=== PATIENT | male | born 1945 | race Caucasian/White ===

== ENCOUNTER 2016-09-08 07:50 | Inpatient (IN) | payer MEDICARE, OTHER ==
[2016-09-08] MEDS ORDERED: SODIUM CHLORIDE 0.9% 500 ML IV STA ×2 (08:02→08:21)
[2016-09-08] MEDS ORDERED: ENALAPRILAT 1.25 MG/ML 1 ML VIAL IVP STA (08:02)
[2016-09-08] MEDS ORDERED: SODIUM CHLORIDE 0.9% 1,000 ML IV STA (08:02)
--- NOTE | 2016-09-08 08:06 | ED ---
Altered Mental Status HPI - General Stated Complaint: HEADACHE, DISORIENTED HX OF STROKE Time Seen by Provider: 09/08/16 07:53 Source: patient, family, RN notes reviewed, old records reviewed - History of Present Illness Initial Comments: This is a 70-year-old male with a history of hypertension CVA type 2 diabetes who apparently has had a headache for the past 3 days he states he fell backwards 3 days ago but in a chair and did not strike his head. He is on Plavix and aspirin. He was brought in today because of confusion it was no this morning he did not answer questions appropriately when asked the name of his daughter was the name of his he stated his daughter was not . Additionally 1 putting a particle clothing on he did this inappropriately tripped over his head on correctly. No focal weaknesses noted no fevers chills nausea vomiting sweats he was recently taken off of his lisinopril but he did take a dose yesterday. Upon arrival to the emergency department he was noted be hypertensive. He does state that headache is sharp 8/10 in severity. No associated blurry vision or nausea. With respect to the lisinopril apparently was August 11 he was told to quit taking it but then was to be started on it again. The patient apparently has some difficulty with reading instructions to something last night around 7:30 this seems to be when the symptoms began. MD Complaint: altered mental status, confusion, other - Related Data Home Medications Medication Instructions Recorded Confirmed Latanoprost Ophth [Xalatan 0.005%] 1 drops RIGHT EYE HS 02/22/15 02/22/15 Multivit-Min/FA/Lycopene/Lut 1 tab PO DAILY 02/22/15 02/22/15 [Centrum Silver Tablet] glipiZIDE [Glucotrol] 10 mg PO AC-BID 02/22/15 02/28/15 Previous Rx's Medication Instructions Recorded Aspirin EC [Ecotrin Low Dose] 162 mg PO DAILY #30 tablet. 03/04/15 Clopidogrel Bisulfate [Plavix] 75 mg PO DAILY #30 03/04/15 Furosemide [Lasix] 40 mg PO DAILY #10 tab 03/04/15 HYDROcodone/APAP 5-325MG [Leroy 1 each PO Q4HR PRN #30 tab 03/04/15 5-325] Lisinopril-Hctz 20-25 mg 1 each PO DAILY #30 tab 03/04/15 [Zestoretic 20-25] Metoprolol Tartrate [Lopressor] 50 mg PO BID #30 tab 03/04/15 Potassium Chloride ER [K-Dur 20] 20 meq PO DAILY #10 tab.er.prt 03/04/15 Simvastatin [Zocor] 40 mg PO HS #30 tab 03/04/15 metFORMIN HCL [Glucophage] 1,000 mg PO AC-BID #30 tab 03/04/15 Allergies Allergy/AdvReac Type Severity Reaction Status Date / Time No Known Allergies Allergy Verified 09/08/16 08:05 Review of Systems ROS Statement: Those systems with pertinent positive or pertinent negative responses have been documented in the HPI. ROS Other: All systems not noted in ROS Statement are negative. Past Medical History Past Medical History: Coronary Artery Disease (CAD), CVA/TIA (Or between 10-15 years ago. Following the first, the patient had some left-sided weakness patient left lower extremity and subsequently he regained consciousness. Second left him with some speech deficits and a third course some generalized weakness.), Diabetes Mellitus, Hyperlipidemia, Hypertension Additional Past Medical History / Comment(s): neuropathy type 2 diabetes History of Any Multi-Drug Resistant Organisms: None Reported Past Surgical History: No Surgical Hx Reported Additional Past Anesthesia/Blood Transfusion Reaction / Comment(s): unknown Past Psychological History: No Psychological Hx Reported Smoking Status: Former smoker Past Alcohol Use History: Occasional Past Drug Use History: None Reported - Past Family History Father Additional Family Medical History / Comment(s): hip replacement Mother Family Medical History: CVA/TIA Brother(s) Family Medical History: Diabetes Mellitus General Exam - General Exam Comments Initial Comments: This is a well-developed well-nourished awake alert male he is alert to day and time and year General appearance: alert, in no apparent distress Head exam: Present: atraumatic, normocephalic, normal inspection Eye exam: Present: normal appearance, PERRL, EOMI. Absent: scleral icterus, conjunctival injection, periorbital swelling ENT exam: Present: mucous membranes dry Neck exam: Present: normal inspection. Absent: tenderness, meningismus, lymphadenopathy Respiratory exam: Present: normal lung sounds bilaterally. Absent: respiratory distress, wheezes, rales, rhonchi, stridor Cardiovascular Exam: Present: regular rate, normal rhythm, normal heart sounds. Absent: systolic murmur, diastolic murmur, rubs, gallop, clicks GI/Abdominal exam: Present: soft, normal bowel sounds. Absent: distended, tenderness, guarding, rebound, rigid Extremities exam: Present: normal inspection, normal capillary refill. Absent: full ROM, tenderness, pedal edema, joint swelling, calf tenderness Back exam: Present: normal inspection Neurological exam: Present: alert, oriented X3, CN II-XII intact, motor sensory deficit, other (Patient does demonstrate inability to do [id number] movements and does have sensory deficit please refer to the NIH stroke scale) Psychiatric exam: Present: normal affect, normal mood Skin exam: Present: warm, dry, intact, normal color. Absent: rash Course Vital Signs 09/08/16 09/08/16 09/08/16 08:00 08:15 09:04 Temperature 96.8 F L 97.6 F Pulse Rate 109 H 112 H 107 H Respiratory 18 18 17 Rate Blood Pressure 238/110 205/111 175/100 O2 Sat by Pulse 93 L 95 97 Oximetry 09/08/16 09/08/16 09:33 09:40 Temperature 97.7 F Pulse Rate 97 103 H Respiratory 101 H 16 Rate Blood Pressure 169/88 169/88 O2 Sat by Pulse 97 98 Oximetry - Reevaluation(s) Reevaluation #1: 09/08/16 09:51 Reevaluation the patient is return from CAT scan revealed no major changes. Reevaluation #2: 09/08/16 09:52 Reevaluation the NIH scale reveals the patient has only minimal improvement from a 6 to a 5 Reevaluation #3: 09/08/16 09:53 The patient blood pressure is improved Medical Decision Making - Medical Decision Making I did a long discussion with the patient family regarding findings. Patient does demonstrate some neurological symptoms. It appears that the onset was more than 12 hours prior to arrival. Patient will be admitted for neurological evaluation. I did discuss the case with the hospitalist. - Lab Data Result diagrams: 09/08/16 03:01 09/08/16 03:01 Lab Results 09/08/16 09/08/16 09/08/16 Range/Units 03:01 03:01 08:06 WBC 9.6 (3.8-10.6) k/uL RBC 5.02 (4.30-5.90) m/uL Hgb 14.9 (13.0-17.5) gm/dL Hct 42.4 (39.0-53.0) % MCV 84.5 (80.0-100.0) fL MCH 29.7 (25.0-35.0) pg MCHC 35.2 (31.0-37.0) g/dL RDW 14.0 (11.5-15.5) % Plt Count 260 (150-450) k/uL Neutrophils % 84 % Lymphocytes % 10 % Monocytes % 4 % Eosinophils % 0 % Basophils % 1 % Neutrophils # 8.1 H (1.3-7.7) k/uL Lymphocytes # 1.0 (1.0-4.8) k/uL Monocytes # 0.4 (0-1.0) k/uL Eosinophils # 0.0 (0-0.7) k/uL Basophils # 0.1 (0-0.2) k/uL Sodium 140 (137-145) mmol/L Potassium 4.1 (3.5-5.1) mmol/L Chloride 100 (98-107) mmol/L Carbon Dioxide 24 (22-30) mmol/L Anion Gap 16 mmol/L BUN 19 (9-20) mg/dL Creatinine 1.14 (0.66-1.25) mg/dL Est GFR (MDRD) Af Amer >60 (>60 ml/min/1.73 sqM) Est GFR (MDRD) Non-Af >60 (>60 ml/min/1.73 sqM) Glucose 295 H (74-99) mg/dL POC Glucose (mg/dL) 311 H (75-99) mg/dL POC Glu Manager Completions ID Babita Montes Calcium 9.4 (8.4-10.2) mg/dL Magnesium 1.7 (1.6-2.3) mg/dL Total Bilirubin 0.9 (0.2-1.3) mg/dL AST 33 (17-59) U/L ALT 50 (21-72) U/L Alkaline Phosphatase 74 (38-126) U/L Total Creatine Kinase (55-170) U/L CK-MB (CK-2) (0.0-2.4) ng/mL CK-MB (CK-2) Rel Index Total Protein 7.4 (6.3-8.2) g/dL Albumin 4.6 (3.5-5.0) g/dL 09/08/16 Range/Units 08:15 WBC (3.8-10.6) k/uL RBC (4.30-5.90) m/uL Hgb (13.0-17.5) gm/dL Hct (39.0-53.0) % MCV (80.0-100.0) fL MCH (25.0-35.0) pg MCHC (31.0-37.0) g/dL RDW (11.5-15.5) % Plt Count (150-450) k/uL Neutrophils % % Lymphocytes % % Monocytes % % Eosinophils % % Basophils % % Neutrophils # (1.3-7.7) k/uL Lymphocytes # (1.0-4.8) k/uL Monocytes # (0-1.0) k/uL Eosinophils # (0-0.7) k/uL Basophils # (0-0.2) k/uL Sodium (137-145) mmol/L Potassium (3.5-5.1) mmol/L Chloride (98-107) mmol/L Carbon Dioxide (22-30) mmol/L Anion Gap mmol/L BUN (9-20) mg/dL Creatinine (0.66-1.25) mg/dL Est GFR (MDRD) Af Amer (>60 ml/min/1.73 sqM) Est GFR (MDRD) Non-Af (>60 ml/min/1.73 sqM) Glucose (74-99) mg/dL POC Glucose (mg/dL) (75-99) mg/dL POC Glu Manager Completions ID Calcium (8.4-10.2) mg/dL Magnesium (1.6-2.3) mg/dL Total Bilirubin (0.2-1.3) mg/dL AST (17-59) U/L ALT (21-72) U/L Alkaline Phosphatase (38-126) U/L Total Creatine Kinase 73 (55-170) U/L CK-MB (CK-2) 1.3 (0.0-2.4) ng/mL CK-MB (CK-2) Rel Index 1.8 Total Protein (6.3-8.2) g/dL Albumin (3.5-5.0) g/dL - EKG Data -: EKG Interpreted by Me EKG shows normal: sinus rhythm (Sinus tachycardia rate of 112 RI interval 154 QRS duration 80 QT/QTC of 346/[address]-T wave changes.) - Radiology Data Radiology results: report reviewed (I did review the imaging and reports. No acute findings are seen.), image reviewed Critical Care Time Critical Care Time: Yes Critical Care Time: 39 minutes which includes initial presentation with history physical lab and x- ray and CAT scan orders as well as evaluation of the same. Reevaluation patient several occasions. Discussion with family members. Discussion with the admitting physician review of old charting and documentation of the same. Disposition Clinical Impression: CVA (cerebral vascular accident), Hypertensive emergency, Hyperglycemia, Dehydration Disposition: ADMITTED IP TO THIS [facility] Condition: Stable Referrals: Alfred Sullivan MD [Primary Care Provider] - 1-2 days
[2016-09-08 08:17] LABS: Glucose,Whole Blood 311 mg/dL (75-99)
[2016-09-08 08:35] LABS: Basophils # (A) 0.1 k/uL (0-0.2); Basophils % (A) 1 %; CHCM 35.7; Eosinophils % (A) 0 %; HCT 42.4 % (39.0-53.0); HDW 3.21; HGB 14.9 gm/dL (13.0-17.5); Luc % (Auto) 1; Lymphocytes % (A) 10 %; MCH 29.7 pg (25.0-35.0); MCHC 35.2 g/dL (31.0-37.0); MCV 84.5 fL (80.0-100.0); Mean Platelet Volume 7.3; Monocytes # (A) 0.4 k/uL (0-1.0); Monocytes % (A) 4 %; Neutrophils # (A) 8.1 k/uL (1.3-7.7); Neutrophils % (A) 84 %; RBC 5.02 m/uL (4.30-5.90); WBC 9.6 k/uL (3.8-10.6); WBC (Perox) 10.36
[2016-09-08 08:40] LABS: ALT 50 U/L (21-72); AST 33 U/L (17-59); Alkaline Phosphatase 74 U/L (38-126); Anion Gap 16 mmol/L; Blood Urea Nitrogen 19 mg/dL (9-20); Calcium 9.4 mg/dL (8.4-10.2); Carbon Dioxide 24 mmol/L (22-30); Chloride 100 mmol/L (98-107); Glucose 295 mg/dL (74-99); Magnesium 1.7 mg/dL (1.6-2.3); Non-African American GFR(MDRD) >60 (>60 ml/min/1.73 sqM); Potassium 4.1 mmol/L (3.5-5.1); Sodium 140 mmol/L (137-145); Total Bilirubin 0.9 mg/dL (0.2-1.3); Total Protein 7.4 g/dL (6.3-8.2)
[2016-09-08 08:57] LABS: Creatine Kinase MB 1.3 ng/mL (0.0-2.4)
--- NOTE | 2016-09-08 09:00 | CT ---
EXAMINATION TYPE: CT brain wo con DATE OF EXAM: 09/08/2016 8:48 AM COMPARISON: CT brain January 05, 2012. HISTORY: Headache, dizziness. Disorientated, history of stroke CT DLP: 1029.90 mGycm. Automated Exposure Control for Dose Reduction was Utilized. TECHNIQUE: CT scan of the head is performed without contrast. COMPARISON: None. FINDINGS: There is no acute intracranial hemorrhage or midline shift identified. There is diffuse v entricular and sulcal prominence consistent with diffuse age-related cerebral atrophy. There is low- attenuation in the periventricular white matter consistent with chronic small vessel ischemic change. There is redemonstration of old infarct right parietal occipital level near image 23 posterior wate rshed. There is additional old infarct right frontal lobe anterior watershed near image 25 which is n oted new from 2012 study. Old lacunar infarct right medial basal ganglia on axial image 22 is redemon strated. Vascular calcification of distal internal carotid arteries bilaterally is redemonstrated. Th e globes are intact and the visualized sinuses are clear. IMPRESSION: No acute intracranial hemorrhage or midline shift. There is mild to moderate diffuse ag e-related cerebral atrophy and chronic small vessel ischemic change redemonstrated, several old right -sided infarcts are also noted.
--- NOTE | 2016-09-08 09:05 | XR ---
EXAMINATION TYPE: XR chest 2V DATE OF EXAM: 09/08/2016 9:00 AM COMPARISON: NONE HISTORY: Headache and confusion FINDINGS: The lungs are clear and there is no pneumothorax, pleural effusion, or focal pneumonia. Postsurgica l changes noted. Atherosclerotic change of the aorta. Arthropathy of the shoulders. IMPRESSION: 1. No acute process.
[2016-09-08] MEDS: SODIUM CHLORIDE 0.9% 1,000 ML IV SCH ×2 (10:13→21:28)
[2016-09-08 10:55] LABS: Hemoglobin A1C 6.3 % (4.2-6.1)
[2016-09-08 11:51] LABS: Glucose,Whole Blood 218 mg/dL (75-99)
[2016-09-08] MEDS ORDERED: HYDROcodone/APAP 5-325MG 1 EACH TAB PO PRN (11:54)
--- NOTE | 2016-09-08 11:55 | US ---
EXAMINATION TYPE: US carotid duplex BILAT DATE OF EXAM: 09/08/2016 11:19 AM COMPARISON: NONE CLINICAL HISTORY: US. Headaches, disoriented EXAM MEASUREMENTS: RIGHT: Peak Systolic Velocity (PSV) cm/sec ----- Right CCA: 48.5 ----- Right ICA: 145.1 ----- Right ECA: 172.7 ICA/CCA ratio: 3.0 RIGHT: End Diastole cm/sec ----- Right CCA: 9.3 ----- Right ICA: 26.8 ----- Right ECA: 13.0 LEFT: Peak Systolic Velocity (PSV) cm/sec ----- Left CCA: 57.3 ----- Left ICA: 114.1 ----- Left ECA: 207.0 ICA/CCA ratio: 2.0 LEFT: End Diastole cm/sec ----- Left CCA: 8.4 ----- Left ICA: 18.8 ----- Left ECA: 15.4 VERTEBRALS (direction of flow): Right Vertebral: Antegrade Left Vertebral: Antegrade IMPRESSION: 1. Moderate plaque noted bilateral bifurcations. There is approximately 50-69% stenosis involving the proximal ICA bilaterally. Criteria for Assigning % of Stenosis / Diameter reduction (Estimation based on the indirect measurements of the internal carotid artery velocities (ICA PSV). 1. Normal (no stenosis)=ICA PSV < 125 cm/s: ratio < 2.0: ICA EDV<40 cm/s. 2. Less than 50% stenosis=ICA PSV < 125 cm/s: ratio < 2.0: ICA EDV<40 cm/s. 3. 50 to 69% stenosis=ICA PSV of 125 to 230 cm/s: ration 2.0 ? 4.0: ICA EDV 40-100 cm/s. 4. Greater than 70% stenosis to near occlusion= ICA PSV > 230 cm/s: ratio > 4.0: ICA EDV > 100 cm/s. 5. Near occlusion= ICA PSV velocities may be low or undetectable: variable ratio and ICA EDV. 6. Total occlusion=unable to detect flow.
[2016-09-08] MEDS ORDERED: Magnesium Replacement Protocol 1 EACH MISC MISCELLANE PRN (12:06)
[2016-09-08] MEDS: INSULIN LISPRO (humaLOG) 300 UNIT/3 ML VIAL SQ SCH ×3 (12:47→21:30)
[2016-09-08] MEDS: ASPIRIN 81 MG CHEW PO SCH ×2 (12:48→17:30)
[2016-09-08] MEDS: METOPROLOL TARTRATE 50 MG TAB PO SCH ×2 (12:48→17:30)
[2016-09-08] MEDS: VIT A,C & E-LUTEIN-MINERALS 1 EACH TAB PO SCH (12:48)
[2016-09-08] MEDS: CLOPIDOGREL 75 MG TAB PO SCH (12:48)
[2016-09-08] MEDS: MAGNESIUM SULFATE-D5W PMX 1 GM in DEXTROSE/WATER 1 100ML.BAG IVPB SCH ×2 (12:53→14:13)
[2016-09-08 17:07] LABS: Glucose,Whole Blood 119 mg/dL (75-99)
[2016-09-08] MEDS: BUTA/APAP/CAF/COD 50-325-40-30 CAP PO PRN ×2 (17:29→21:29)
--- NOTE | 2016-09-08 17:47 | HP ---
DATE OF ADMISSION: Patient is a 70-year-old gentleman with a history of cerebrovascular accident in the past. Patient is on both aspirin and Plavix and came in with the complaints of episode of confusion. Not really a syncopal episode as documented in the ER physician's dictation. Patient is aware of the surroundings. When further questioned, patient is not really sure whether he is actually confused or not. His main complaint being a headache, which was 10/10 and now 5/10 and patient has cervical degenerative disc disease. He points his pain to cervical area, neck area and the posterior scalp area probably due to cervical degenerative disk disease and cervical cephalgia for which I started him on Fioricet. Patient was admitted for further evaluation for possibility of TIA, although my suspicion is low for that. Patient's CT of the head did not show any acute abnormality and carotid Doppler did not show significant occlusion, but there is significant atherosclerotic plaques on bilateral carotids. There is some diffuse age-related atrophy and several old infarcts that were seen on the CT of the head. Although patient is already on dual antiplatelet therapy. Patient recently had a CABG. Patient denied any fever or chills. Patient denied weakness, tingling, numbness anywhere. Patient's headache is 5/10 at this point of time. Patient had troubles with reading yesterday, but the history is not very clear, although his symptomatology is not consistent with infarction in any particular location of the brain. When patient came patient's blood pressure was very high. Patient was given a small dose enalapril after which his blood pressure has come now. Patient did not take any of his medications today. I do not believe patient actually has hypertensive emergency. I do not believe his confusion is related to high blood pressure. Instead I believe his elevated blood pressures is a false reading, which was taken immediately after coming to the ER, which is a physiologic elevation and patient's blood pressure immediately came down to 140s and I am actually even holding his hydrochlorothiazide and lisinopril for today to check out his blood pressure as it appears like it has been low at home but patient is mildly tachycardic. He has reflex tachycardia because of not taking metoprolol at home today morning and patient was given enalapril which has vasodilatory. REVIEW OF SYSTEMS: CONSTITUTIONAL: No fever, no malaise, no fatigue. HEENT: No recent visual problems or hearing problems. Denied any sore throat. CARDIOVASCULAR: No chest pain, orthopnea, PND, no palpitations, no syncope. PULMONARY: No shortness of breath, no cough, no hemoptysis. GASTROINTESTINAL: No diarrhea, no nausea, no vomiting, no abdominal pain. Normoactive bowel sounds. NEUROLOGICAL: As described HPI. HEMATOLOGICAL: Denies any bleeding or petechiae. GENITOURINARY: Denies any burning micturition, frequency, or urgency. MUSCULOSKELETAL/RHEUMATOLOGICAL: Denies any joint pain, swelling, or any muscle pain. ENDOCRINE: Denies any polyuria or polydipsia. The rest of the 14 point review of systems is negative. Home medications include latanoprost, multivitamin, glipizide, aspirin, Plavix, Lasix, hydrocodone acetaminophen, lisinopril, hydrochlorothiazide, metoprolol, potassium chloride, simvastatin and metformin. ALLERGIES: No known drug allergies. PAST MEDICAL HISTORY: Significant for coronary artery disease, CVAs and TIAs in the past, diabetes mellitus, hypertension, diabetic neuropathy and mild diabetic nephropathy, stage II CKD, former smoker. Denied any alcohol abuse or any drug abuse. FAMILY HISTORY: Father had ( ), and mother had CVA, TIA and brother has type 2 diabetes mellitus. PHYSICAL EXAMINATION: Temperature 98.2, pulse of 107, respiratory rate of 18, blood pressure is 140/78, saturating at 98% on 2 liters of O2 by nasal cannula. GENERAL: The patient is alert and oriented x3, not in any acute distress. Well developed, well nourished. HEENT: Pupils are round and equally reacting to light. EOMI. No scleral icterus. No conjunctival pallor. Normocephalic, atraumatic. No pharyngeal erythema. No thyromegaly. CARDIOVASCULAR: S1 and S2 present. No murmurs, rubs, or gallops. PULMONARY: Chest is clear to auscultation, no wheezing or crackles. ABDOMEN: Soft, nontender, nondistended, normoactive bowel sounds. No palpable organomegaly. MUSCULOSKELETAL: No joint swelling or deformity. EXTREMITIES: No cyanosis, clubbing, or pedal edema. NEUROLOGICAL: Gross neurological examination did not reveal any focal deficits. SKIN: No rashes. LABORATORY DATA: CBC, CMP are abnormal for only mildly elevated blood glucose. Hemoglobin A1c is 6.3, which is at the target level. ASSESSMENT AND PLAN: 1. Episode of confusion. Patient will be ruled out transient ischemic attack, although my suspicion is low for that and will let neurology assess him. 2. Elevated blood pressure is a false reading. I do not believe patient has hypertensive emergency at this point of time. Actually I am holding his lisinopril and hydrochlorothiazide here. Patient will be continued on metoprolol due to reflex tachycardia because of not taking lisinopril. 3. Coronary artery disease. 4. Type 2 diabetes mellitus. Hold off oral hypoglycemics. Patient will be started on sliding-scale insulin here. 5. Hypertension. 6. Hyperlipidemia for which I will go ahead and continue his home medications except for hydrochlorothiazide lisinopril and oral hypoglycemics. Patient will be on sliding scale insulin. 7. Coronary artery disease. I will decide on his lisinopril hydrochlorothiazide upon discharge depending on how his blood pressures due until tomorrow morning. 8. Diabetic neuropathy. 9. Diabetic nephropathy. 10. History of cerebrovascular accidents with multivessel small ischemic changes in the brain CT. 11. We will watch him tonight and possibility of discharge tomorrow. Patient's work-up is already done. Patient has recent echocardiogram, which did not show of any interventricular thrombus. I do not expect him to form a thrombosis within a month anyways. Primary care physician is Dr. Sullivan.
--- NOTE | 2016-09-08 19:13 | P.CNNES ---
History of Present Illness Consult date: 09/08/16 Reason for Consult: Patient admitted with possible stroke. History of Present Illness: This patient is a 70-year-old right-handed white male who was brought into the emergency room for evaluation of severe headache and altered mental status. Patient had been complaining of headache for 3 days prior to his admission. He was brought into the ER where he was further evaluated by Dr. Reyes. He was sent for computed tomography scan of the brain which came back negative for any acute stroke or hemorrhage. There was mild to moderate diffuse age-related chronic atrophy noted. Evidence of old right-sided infarcts were also appreciated. Patient states he does have history of strokes in the past. He has been taking Plavix on a regular basis for secondary stroke prevention. In addition he also uses aspirin. Apparently about a few weeks ago he was seen in the cardiology clinic. There was some miscommunication and apparently he stopped his lisinopril for treatment of his hypertension. He was not aware that he was to start on a higher dose elicited a paralytic the time. He was seen in the emergency room due to the severity of his headaches today. His blood pressure reading in the ER was 238/116. He had evidence of hypertensive urgency. He was treated for this and admitted to the hospital. He is now resting comfortably and states he does feel better but still has a mild headache. His blood pressure is being closely monitored. The patient also showed evidence of mild confusion. This is felt to be secondary to the uncontrolled hypertension. He seems to be back to baseline according to the and daughter who were at bedside. Neurology is now consulted for further evaluation and recommendations. Review of Systems Constitutional: Denies chills, Denies fever Eyes: denies blurred vision, denies pain Ears, nose, mouth and throat: Denies headache, Denies sore throat Cardiovascular: Denies chest pain, Denies shortness of breath Respiratory: Denies cough Gastrointestinal: Denies abdominal pain, Denies diarrhea, Denies nausea, Denies vomiting Musculoskeletal: Denies myalgias Integumentary: Denies pruritus, Denies rash Neurological: Denies numbness, Denies weakness Psychiatric: Denies anxiety, Denies depression Endocrine: Denies fatigue, Denies weight change Past Medical History Past Medical History: Coronary Artery Disease (CAD), Chest Pain / Angina, CVA/ TIA, Diabetes Mellitus, Eye Disorder, Hyperlipidemia, Hypertension, Myocardial Infarction ([place]) Additional Past Medical History / Comment(s): CVA's-deficits resolved and pt believes TIA, NIDDM type II, bilateral hands and feet neuropathy, anemia from acute postop blood loss, R eye glaucoma. Last Myocardial Infarction Date:: 02/2016 History of Any Multi-Drug Resistant Organisms: None Reported Past Surgical History: Coronary Bypass/CABG, Heart Catheterization Additional Past Surgical History / Comment(s): 02/27/16 CABG-4 vessel Past Anesthesia/Blood Transfusion Reactions: No Reported Reaction Additional Past Anesthesia/Blood Transfusion Reaction / Comment(s): unknown Past Psychological History: No Psychological Hx Reported Additional Psychological History / Comment(s): Pt resides with his spouse. He recently has been using a cane. He drives. He is a [place] . He served in the [employer]. 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 Smoking Status: Former smoker Past Alcohol Use History: Rare Additional Past Alcohol Use History / Comment(s): Pt started smoking in 1957 and quit off and on before quitting for the last time in 2013. Past Drug Use History: None Reported - Past Family History Father Additional Family Medical History / Comment(s): hip replacement Mother Family Medical History: CVA/TIA Brother(s) Family Medical History: Diabetes Mellitus Medications and Allergies Home Medications Medication Instructions Recorded Confirmed Type Latanoprost Ophth [Xalatan 0.005%] 1 drops RIGHT EYE HS 02/22/15 09/08/16 History Multivit-Min/FA/Lycopene/Lut 1 tab PO W/LUNCH 02/22/15 09/08/16 History [Centrum Silver Tablet] glipiZIDE [Glucotrol] 10 mg PO AC-BID 02/22/15 09/08/16 History Aspirin EC [Ecotrin Low Dose] 81 mg PO AC-BID 09/08/16 09/08/16 History HYDROcodone/APAP 5-325MG [[place] 1 tab PO Q4HR PRN 09/08/16 09/08/16 History 5-325] Lisinopril-Hctz 10-12.5 mg 1 tab PO DAILY 09/08/16 09/08/16 History [Zestoretic 10-12.5] Metoprolol Tartrate [Lopressor] 50 mg PO AC-BID 09/08/16 09/08/16 History Simvastatin [Zocor] 20 mg PO HS 09/08/16 09/08/16 History metFORMIN HCL 1,000 mg PO AC-BID 09/08/16 09/08/16 History Allergies Allergy/AdvReac Type Severity Reaction Status Date / Time No Known Allergies Allergy Verified 09/08/16 08:05 Physical Examination - Vital Signs Vital Signs: Vital Signs Temp Pulse Pulse Resp BP BP Pulse Ox 09/08/16 12:05 98.2 F 109 H 18 154/81 98 09/08/16 11:20 98.4 F 107 H 16 140/78 98 09/08/16 10:35 97.7 F 99 16 162/91 98 - Constitutional General appearance: average body habitus, cooperative - EENT EENT: PERRL, mucous membranes moist - Respiratory Respiratory: lungs clear, normal breath sounds - Cardiovascular Cardiovascular: regular rate, normal S1, normal S2 Extremities: no peripheral edema bilaterally - Gastrointestinal Gastrointestinal: normoactive bowel sounds - Integumentary Integumentary: normal - Neurologic Cranial nerve examination: PERRL, EOMI, VFF, V1/V2/V3 grossly intact, face symmetric, tongue midline, intact gag reflex, intact vestibulo-ocular reflex, intact corneal reflex, normal palatal elevation Speech examination: intact Sensorimotor examination: intact Detailed motor examination: grossly full strength in all extremities Motor examination - right side: 5/5: biceps, triceps, wrist flexion, wrist extension, asset protection representative, hip flexors, knee extensors, dorsiflexion, toe extension (EHL) , plantarflexion Motor examination - left side: 5/5: biceps, triceps, wrist flexion, wrist extension, asset protection representative, hip flexors, knee extensors, dorsiflexion, toe extension (EHL) , plantarflexion Detailed sensory examination: intact Reflex and gait examination: intact Reflexes: 1+: ankle, bicep, knee, tricep - Musculoskeletal Musculoskeletal: no pain - Psychiatric Psychiatric: mood/affect appropriate, cooperative Results - Laboratory Findings CBC and BMP: 09/08/16 03:01 09/08/16 03:01 Abnormal Lab Findings: Abnormal Labs 09/08/16 09/08/16 09:59 11:49 POC Glucose (mg/dL) 218 H Hemoglobin A1c 6.3 H Assessment and Plan (1) Hypertensive encephalopathy Status: Acute Code(s): I67.4 - HYPERTENSIVE ENCEPHALOPATHY (2) History of stroke Status: Acute Code(s): Z86.73 - PRSNL HX OF TIA (TIA), AND CEREB INFRC W/O RESID DEFICITS (3) CAD (coronary artery disease) Status: Acute Code(s): I25.10 - ATHSCL HEART DISEASE OF [place] CORONARY ARTERY W/O ANG PCTRS (4) S/P CABG (coronary artery bypass graft) Status: Acute Code(s): Z95.1 - PRESENCE OF AORTOCORONARY BYPASS GRAFT Plan: This patient is a 70-year-old male who was admitted to hospital with severe headache for 3 days prior to admission. He had been off of his regular antihypertensive medication for 2 weeks. There was some confusion with his dosing schedule. In the emergency room his blood pressure was significantly elevated at 238/116. He was treated for this and admitted to the hospital. He had evidence of hypertensive urgency. He also had some episode of confusion and disorientation. This was felt to be due to hypertensive encephalopathy. He is now doing better terms of his mental status since his blood pressure has been regulated. His neurological examination at this time is nonfocal. He does have history of previous right hemispheric strokes. He is currently on Plavix and aspirin and should continue on the same for secondary stroke prevention. Case was discussed at length with the patient's and daughter at bedside. All their questions were answered. They're aware of his guarded condition. We will continue close neurological follow-up for the patient during this admission. Time with Patient: Greater than 30
[2016-09-08 20:39] LABS: Glucose,Whole Blood 228 mg/dL (75-99)
[2016-09-08] MEDS ORDERED: FAMOTIDINE 20 MG/2 ML VIAL IV SCH (21:00)
[2016-09-08] MEDS ORDERED: LATANOPROST 0.005% OPHTH DROPS 2.5 ML BTL RIGHT EYE SCH (21:00)
[2016-09-08] MEDS ORDERED: ATORVASTATIN 10 MG TAB PO SCH (21:00)
[2016-09-09 05:32] LABS: Glucose,Whole Blood 127 mg/dL (75-99)
[2016-09-09] MEDS: SODIUM CHLORIDE 0.9% 1,000 ML IV SCH (06:12)
[2016-09-09] MEDS: INSULIN LISPRO (humaLOG) 300 UNIT/3 ML VIAL SQ SCH (06:13)
[2016-09-09] MEDS: METOPROLOL TARTRATE 50 MG TAB PO SCH (06:37)
[2016-09-09] MEDS: ASPIRIN 81 MG CHEW PO SCH (06:37)
[2016-09-09] MEDS ORDERED: ASPIRIN 300 MG SUPP RECTAL SCH (09:00)
[2016-09-09] MEDS ORDERED: FAMOTIDINE 20 MG TAB PO SCH (09:00)
[2016-09-09 09:49] VITALS: BP 137/71; PULSE 70; RESP 16; TEMP 97.1
[2016-09-09] MEDS: CLOPIDOGREL 75 MG TAB PO SCH (09:50)
[2016-09-09] MEDS: VIT A,C & E-LUTEIN-MINERALS 1 EACH TAB PO SCH (11:58)
[2016-09-09] MEDS ORDERED: ASPIRIN 325 MG TAB PO SCH (12:00)
[2016-09-09 12:16] LABS: Glucose,Whole Blood 141 mg/dL (75-99)
--- NOTE | 2016-09-09 13:58 | P.PN ---
Subjective This patient is a 70-year-old right-handed white male admitted with episode of hypertensive urgency and confusion. Patient had uncontrolled hypertension when he was admitted yesterday through the emergency room. His blood pressure has been well monitored and managed and is doing much better. He did complain of mild headache yesterday but this has since resolved. Patient's clinical history is one of acute hypertensive encephalopathy. Neurologically he is doing better today. He is being evaluated for discharge to home later today as long as his blood pressure stays well controlled. He underwent a carotid Doppler ultrasound which failed to reveal any significant carotid artery stenosis. Computed tomography scan of the brain failed to reveal acute stroke. We will continue close neurological follow-up for the patient during this admission. Objective - Vital Signs Vital signs: Vital Signs Temp 97.1 F L 09/09/16 08:00 Pulse 70 09/09/16 08:00 Resp 16 09/09/16 08:00 BP 137/71 09/09/16 08:00 Pulse Ox 98 09/09/16 08:00 Intake & Output 09/08/16 09/09/16 09/09/16 18:59 06:59 18:59 Intake Total 500 600 180 Output Total 300 Balance 500 300 180 Weight 103.3 kg Intake: IV 500 600 Magnesium Sulfate-D5w Pmx 200 1 gm In Dextrose/Water 1 100ml.bag @ 100 mls/hr IVPB Q1H [facility] Rx#: [id number] Sodium Chloride 0.9% 1, 300 600 000 ml @ 100 mls/hr IV . Q10H [facility] Rx#:[id number] Oral 180 Output: Urine 300 Other: Voiding Method Urinal Toilet Urinal # Voids 1 1 - Exam Physical examination: PHYSICAL EXAMINATION: Patient is resting comfortably in bed. VITAL SIGNS: Blood pressure is [137/71]. Heart rate is [70]. Respiration is [16] . Temperature is [97.1]. HEENT: Head is atraumatic, neck is supple, there were no carotid bruits. CHEST: Lungs are clear to auscultation and percussion. CARDIAC: S1, S2 normal rate and rhythm. There is no murmur. ABDOMEN: Soft and nontender. Bowel sounds are present. EXTREMITIES: There is no pedal edema. Peripheral pulses are present. Neurological examination: Patient has a nonfocal neurological examination today. - Labs CBC & Chem 7: 09/08/16 03:01 09/08/16 03:01 Labs: Abnormal Lab Results - Last 24 Hours (Table) 09/08/16 09/08/16 09/09/16 Range/Units 16:41 20:37 05:27 POC Glucose (mg/dL) 119 H 228 H 127 H (75-99) mg/dL 09/09/16 Range/Units 11:50 POC Glucose (mg/dL) 141 H (75-99) mg/dL Assessment and Plan (1) Hypertensive encephalopathy Status: Acute Code(s): I67.4 - HYPERTENSIVE ENCEPHALOPATHY (2) History of stroke Status: Acute Code(s): Z86.73 - PRSNL HX OF TIA (TIA), AND CEREB INFRC W/O RESID DEFICITS (3) CAD (coronary artery disease) Status: Acute Code(s): I25.10 - ATHSCL HEART DISEASE OF [place] CORONARY ARTERY W/O ANG PCTRS (4) S/P CABG (coronary artery bypass graft) Status: Acute Code(s): Z95.1 - PRESENCE OF AORTOCORONARY BYPASS GRAFT Plan: This patient is a 70-year-old male who was admitted to hospital with severe headache for 3 days prior to admission. He had been off of his regular antihypertensive medication for 2 weeks. There was some confusion with his dosing schedule. In the emergency room his blood pressure was significantly elevated at 238/116. He was treated for this and admitted to the hospital. He had evidence of hypertensive urgency. He also had some episode of confusion and disorientation. This was felt to be due to hypertensive encephalopathy. He is now doing better terms of his mental status since his blood pressure has been regulated. His neurological examination at this time is nonfocal. He does have history of previous right hemispheric strokes. He is currently on Plavix and aspirin and should continue on the same for secondary stroke prevention. Case was discussed at length with the patient's and daughter at bedside. The patient is doing much better today. Blood pressure is well controlled. Carotid Doppler ultrasound was negative for any evidence of carotid artery stenosis. He is being considered for discharge to home and may follow-up in the outpatient neurology clinic in 3-4 weeks. We will continue close neurological follow-up for the patient during this admission. Patient to be discharged home today. He should monitor her blood pressure readings and follow-up with his primary care physician as well.
--- NOTE | 2016-09-09 14:52 | DS ---
DATE OF ADMISSION: 09/08/2016 DATE OF DISCHARGE: 09/09/2016 Patient came in with an episode of confusion, probably related to transient global amnesia. The patient underwent work-up with CT of the head, carotid Doppler and EEG all of which are essentially negative. Patient is having headaches from cervical degenerative disc disease leading to increased blood pressure because of the headache. I do not believe patient has hypertensive encephalopathy and patient was evaluated for TIA. Patient probably has either TIA or transient global amnesia or just confusion because of the pain. I do not believe patient has hypertensive encephalopathy since his blood pressure remains stable even without taking his home medications of lisinopril and hydrochlorothiazide. Actually I got rid of lisinopril and hydrochlorothiazide because of his blood pressure readings here, which the last one being 124/46 in spite of not taking his medication yesterday, but I believe he will need a lower dose of SANCHEZ inhibitor because of which I am sending him on 5 mg of lisinopril with blood pressure checks daily. Patient is already on aspirin and Plavix. Nothing much can be done regarding antiplatelet therapy either. Patient is already on statin. Although I did not get any lipid panel checked at this time. That can be done as an outpatient. Patient was seen and examined on the day of discharge. Vitals are stable. PHYSICAL EXAMINATION: GENERAL: The patient is alert and oriented x3, not in any acute distress. Well developed, well nourished. HEENT: Pupils are round and equally reacting to light. EOMI. No scleral icterus. No conjunctival pallor. Normocephalic, atraumatic. No pharyngeal erythema. No thyromegaly. CARDIOVASCULAR: S1 and S2 present. No murmurs, rubs, or gallops. PULMONARY: Chest is clear to auscultation, no wheezing or crackles. ABDOMEN: Soft, nontender, nondistended, normoactive bowel sounds. No palpable organomegaly. MUSCULOSKELETAL: No joint swelling or deformity. EXTREMITIES: No cyanosis, clubbing, or pedal edema. NEUROLOGICAL: Gross neurological examination did not reveal any focal deficits. SKIN: No rashes. FINAL DIAGNOSES: 1. Episode of confusion, etiology as per the interval history. 2. Elevated blood pressure is either a false reading or due to headache. I do not believe patient has hypertensive encephalopathy because of above mentioned reasons. 3. Coronary artery disease. 4. Type 2 diabetes mellitus. 5. Hypertension. 6. Hyperlipidemia. 7. Coronary artery disease. 8. Diabetic neuropathy. 9. Diabetic nephropathy. The patient will continue all his medications except for lisinopril and hydrochlorothiazide combination. Patient will be discharged on 5 mg of lisinopril along with Fioricet with regular blood pressure checks. Patient will follow with Dr. Sullivan in 3 to 7 days. Activity as tolerated. Cardiac and diabetic 1800 calorie diet. Patient had weight counseling regarding that as well. Patient will follow with Dr. Sullivan and his motion picture operator as an outpatient. Activity as tolerated. Patient does have some old chronic small vessel ischemic changes from the CT of the head.
--- NOTE | 2016-09-10 08:43 | EEG ---
DATE OF SERVICE: 09/09/2016 REFERRING PHYSICIAN: Dr. Obrien. INTERPRETING PHYSICIAN: Dr. Rachel Vallejo. INDICATIONS FOR EXAMINATION: This patient is a 70-year-old male admitted with altered mental status and hypertensive encephalopathy. Patient with uncontrolled hypertension on admission. AGE: 70Y EEG FINDINGS: A routine 21-channel, awake digital EEG recording was accomplished utilizing the 10 to 20 international system with bipolar and referential montages. The background activity in the most alert resting state consists of a low to medium amplitude, fairly well-developed and well sustained 8 Hz activity over the posterior head regions. This posterior rhythm attenuates to eye opening. There is a small amount of low amplitude 18 to 20 Hz, beta activity seen maximally over the anterior head regions. Muscle and movement artifact was observed on a few occasions during the tracing. Hyperventilation was not performed. Photic stimulation at flash frequencies of 2 to 30 Hz produced a good symmetrical occipital driving response. No epileptiform discharges were seen. IMPRESSION: This EEG is within normal limits for the patient's age. The EEG failed to reveal any focal, lateralized or epileptiform abnormalities. Clinical correlation is recommended.
== END 2016-09-09 13:25 | disposition home or self-care (01) | DRG 72 ==
LOC: EC 07:50 → 6SEL 09:56
PROVIDERS: ADMIT Internal Medicine; ATTEND Internal Medicine
DX: G45.4 Transient global amnesia (principal); E11.21 Type 2 diabetes mellitus with diabetic nephropathy; E11.40 Type 2 diabetes mellitus with diabetic neuropathy, unspecified; E11.65 Type 2 diabetes mellitus with hyperglycemia; E11.22 Type 2 diabetes mellitus with diabetic chronic kidney disease; E78.5 Hyperlipidemia, unspecified; E86.0 Dehydration; H40.9 Unspecified glaucoma; I12.9 Hypertensive chronic kidney disease with stage 1 through stage 4 chronic kidney disease, or unspecified chronic kidney disease; I25.10 Atherosclerotic heart disease of native coronary artery without angina pectoris; I25.2 Old myocardial infarction; M50.30 Other cervical disc degeneration, unspecified cervical region; N18.2 Chronic kidney disease, stage 2 (mild); G44.89 Other headache syndrome; Z79.02 Long term (current) use of antithrombotics/antiplatelets; Z79.82 Long term (current) use of aspirin; Z79.84 Long term (current) use of oral hypoglycemic drugs; Z79.899 Other long term (current) drug therapy; Z87.891 Personal history of nicotine dependence; Z95.1 Presence of aortocoronary bypass graft
CPT/HCPCS: 36415; 70450; 71020; 80053; 82550; 82553; 83036; 83735; 85025; 93005; 93880; 95816; 96361; 96374; 99291

== ENCOUNTER 2024-03-18 10:01 | Emergency (ER) | payer MEDICARE, OTHER ==
--- NOTE | 2024-03-18 10:24 | ED ---
Extremity Problem HPI - General Source: patient, family, RN notes reviewed Mode of arrival: wheelchair Limitations: no limitations <Milla Thomas - Last Filed: 03/18/24 10:22> - General Source: patient, family, RN notes reviewed Limitations: no limitations <Toño Fletcher - Last Filed: 03/18/24 13:06> - General Chief complaint: Extremity Problem,Nontraumatic Stated complaint: R Foot Swelling Time Seen by Provider: 03/18/24 10:19 - History of Present Illness Initial comments: Quick Note-this is a 78-year-old male presents emergency department chief complaint of pain of his right foot since Sunday. States that the edema, pain, erythema has been worsening over the past few days. He states that he had a fever on Sunday and has been feeling nauseous with no episodes of emesis. Denies recent travel or surgeries. Denies dyspnea, headaches, chest pain or palpitations. Patient is on Plavix has a history of a CABG. (Milla Thomas) Patient is a 78-year-old male presenting to the emergency department with concerns with right foot discomfort. Onset of symptoms was 4 days ago. Patient did have a small area on the top of his foot that did itch him and he was scratching it. Following this foot became red and swollen and painful. Patient did have a fever 4 days ago, none since that time. No history of similar symptoms previously. No calf pain. No swelling. (Toño Fletcher) - Related Data Home Medications Medication Instructions Recorded Confirmed Latanoprost Ophth [Xalatan 0.005%] 1 drops RIGHT EYE HS 02/22/15 11/23/18 Multivit-Min/FA/Lycopene/Lut 1 tab PO AC-BRKFST 02/22/15 11/23/18 [Centrum Silver Tablet] glipiZIDE [Glucotrol] 20 mg PO QAM 02/22/15 11/23/18 Aspirin EC [Ecotrin Low Dose] 81 mg PO AC-BID 09/08/16 11/23/18 Metoprolol Tartrate [Lopressor] 50 mg PO AC-BID 09/08/16 11/23/18 Simvastatin [Zocor] 20 mg PO HS 09/08/16 11/23/18 glipiZIDE [Glucotrol] 10 mg PO HS 11/23/18 11/23/18 metFORMIN HCL [Glucophage] 500 mg PO AC-SUPPER 11/23/18 11/23/18 Previous Rx's Medication Instructions Recorded Clopidogrel Bisulfate [Plavix] 75 mg PO DAILY #30 03/04/15 lisinopriL [Prinivil] 5 mg PO DAILY #30 tablet 09/09/16 Clindamycin [Cleocin] 2 tab PO Q6H #80 cap 03/18/24 Allergies Allergy/AdvReac Type Severity Reaction Status Date / Time No Known Allergies Allergy Verified 03/18/24 10:10 Review of Systems ROS Other: All systems not noted in ROS Statement are negative. <Milla Thomas - Last Filed: 03/18/24 10:22> ROS Other: All systems not noted in ROS Statement are negative. Constitutional: Reports: as per HPI Eyes: Denies: eye pain ENT: Denies: ear pain Musculoskeletal: Reports: as per HPI Skin: Reports: as per HPI, rash <Toño Fletcher - Last Filed: 03/18/24 13:06> ROS Statement: Those systems with pertinent positive or pertinent negative responses have been documented in the HPI. Past Medical History Past Medical History: Coronary Artery Disease (CAD), Chest Pain / Angina, CVA/TIA, Diabetes Mellitus, Eye Disorder, Hyperlipidemia, Hypertension, Myocardial Infarction (DC) Additional Past Medical History / Comment(s): CVA's-deficits resolved and pt believes TIA, NIDDM type II, bilateral hands and feet neuropathy, anemia from acute postop blood loss, R eye glaucoma. Last Myocardial Infarction Date:: 02/2016 History of Any Multi-Drug Resistant Organisms: None Reported Past Surgical History: Coronary Bypass/CABG, Heart Catheterization Additional Past Surgical History / Comment(s): 02/27/16 CABG-4 vessel Past Anesthesia/Blood Transfusion Reactions: No Reported Reaction Additional Past Anesthesia/Blood Transfusion Reaction / Comment(s): unknown Past Psychological History: No Psychological Hx Reported Past Alcohol Use History: Rare Past Drug Use History: None Reported - Past Family History Father Additional Family Medical History / Comment(s): hip replacement Mother Family Medical History: CVA/TIA Brother(s) Family Medical History: Diabetes Mellitus <Milla Thomas - Last Filed: 03/18/24 10:22> General Exam Limitations: no limitations <Milla Thomas - Last Filed: 03/18/24 10:22> Limitations: no limitations General appearance: alert, in no apparent distress Head exam: Present: normocephalic Eye exam: Present: normal appearance Neck exam: Present: normal inspection Respiratory exam: Present: normal lung sounds bilaterally Cardiovascular Exam: Present: regular rate, normal rhythm Expanded Peripheral pulses: 2+: Dorsalis Pedis (R) GI/Abdominal exam: Present: soft. Absent: tenderness Extremities exam: Present: other (Right foot with mild diffuse swelling and erythema and tenderness. Distally extremity is neurovascular intact. This extends to the ankle.). Absent: calf tenderness Neurological exam: Present: alert. Absent: motor sensory deficit Psychiatric exam: Present: normal affect, normal mood Skin exam: Present: erythema <Toño Fletcher - Last Filed: 03/18/24 13:06> - General Exam Comments Initial Comments: Visual Physical Exam Vital signs reviewed General: Well-appearing, nontoxic, no acute distress. Head: Normocephalic, atraumatic Eyes: PERRLA, EOMI ENT: Airway patent Chest: Nonlabored breathing Skin: No visual rash, normal skin tone Neuro: Alert and oriented 3 Musculoskeletal: No gross abnormalities (Milla Thomas) Course Vital Signs 03/18/24 10:08 Temperature 98.9 F Pulse Rate 97 Respiratory 18 Rate Blood Pressure 144/81 O2 Sat by Pulse 98 Oximetry Medical Decision Making <Milla Thomas - Last Filed: 03/18/24 10:22> - Lab Data Result diagrams: 03/18/24 11:12 03/18/24 11:12 <Toño Fletcher - Last Filed: 03/18/24 13:06> - Medical Decision Making I completed the quick note portion of this chart signed Milla Thomas PA-C (Milla Thomas) Was pt. sent in by a medical professional or institution (PHILIP Hardin, PHOSPHORUS PROCESSING SUPERVISOR, urgent care, hospital, or senior care...) When possible be specific @ -Patient was sent in by the clinic Did you speak to anyone other than the patient for history (EMS, parent, family, police, friend...)? What history was obtained from this source @ -Family is present helps provide history including onset of symptoms and appearance of rash. Did you review nursing and triage notes (agree or disagree)? Why? @ -I reviewed and agree with nursing and triage notes Were old charts reviewed (outside hosp., previous admission, EMS record, old EKG, old radiological studies, urgent care reports/EKG's, senior care records)? Report findings @ -Previous renal function reviewed and is worsening. Differential Diagnosis (chest pain, altered mental status, abdominal pain women, abdominal pain men, vaginal bleeding, weakness, fever, dyspnea, syncope, headache, dizziness, GI bleed, back pain, seizure, CVA, palpatations, mental health, musculoskeletal)? @ -Differential Fever: Pneumonia, viral URI, endocarditis, myocarditis, pericarditis, otitis, sinusitis, peritonsillar Abscess, retropharyngeal Abscess, epiglottitis, peritonitis, appendicitis, Ana cystitis, diverticulitis, hepatitis, colitis, UTI, PID, TOA, pyelonephritis, prostatitis, epididymitis, meningitis, encep halitis, pulmonary embolism, CVA, thyroid storm, pancreatitis, adrenal crisis, cavernous sinus thrombosis, this is not meant to be an all-inclusive list. EKG interpreted by me (3pts min.). @ -As above X-rays interpreted by me (1pt min.). @ -X-ray right foot shows no acute osseous abnormality CT interpreted by me (1pt min.). @ -None done U/S interpreted by me (1pt. min.). @ -Ultrasound negative for DVT What testing was considered but not performed or refused? (CT, X-rays, U/S, labs)? Why? @ -None What meds were considered but not given or refused? Why? @ -None Did you discuss the management of the patient with other professionals (professionals i.e. , PA, PHOSPHORUS PROCESSING SUPERVISOR, lab, RT, psych nurse, social insurance specialist, major gifts manager, teacher, client sales and service officer, residential case manager)? Give summary @ -No Was smoking cessation discussed for >3mins.? @ -No Was critical care preformed (if so, how long)? @ -No Were there social determinants of health that impacted care today? How? (Homelessness, low income, unemployed, alcoholism, drug addiction, transportation, low edu. Level, literacy, decrease access to med. care, usp, rehab)? @ -No Was there de-escalation of care discussed even if they declined (Discuss DNR or withdrawal of care, Hospice)? DNR status @ -No What co-morbidities impacted this encounter? (DM, HTN, Smoking, COPD, CAD, Cancer, CVA, ARF, Chemo, Hep., AIDS, mental health diagnosis, sleep apnea, m orbid obesity)? @ -None Was patient admitted / discharged? Hospital course, mention meds given and route, prescriptions, significant lab abnormalities, going to OR and other pertinent info. @ -Patient felt to be safe for discharge and close follow-up. Patient and family updated and in agreement. Patient will be prescribed antibiotics. IV fluids and dose of antibiotics provided here. Undiagnosed new problem with uncertain prognosis? @ -No Drug Therapy requiring intensive monitoring for toxicity (Heparin, Nitro, Insulin, Cardizem)? @ -No Were any procedures done? @ -No Diagnosis/symptom? @ -Cellulitis right foot, renal insufficiency Acute, or Chronic, or Acute on Chronic? @ -Acute, acute on chronic Uncomplicated (without systemic symptoms) or Complicated (systemic symptoms)? @ -Default Side effects of treatment? @ -No Exacerbation, Progression, or Severe Exacerbation? @ -No Poses a threat to life or bodily function? How? (Chest pain, USA, DC, pneumonia, PE, COPD, DKA, ARF, appy, cholecystitis, CVA, Diverticulitis, Homicidal, Suicidal, threat to staff... and all critical care pts) @ -No (Toño Fletcher) - Lab Data Lab Results 03/18/24 03/18/24 03/18/24 Range/Units 11:12 11:12 11:12 WBC 9.0 (3.8-10.6) k/uL RBC 4.25 L (4.30-5.90) m/uL Hgb 13.3 (13.0-17.5) gm/dL Hct 38.4 L (39.0-53.0) % MCV 90.4 (80.0-100.0) fL MCH 31.2 (25.0-35.0) pg MCHC 34.5 (31.0-37.0) g/dL RDW 12.7 (11.5-15.5) % Plt Count 234 (150-450) k/uL MPV 7.8 Neutrophils % (Manual) 75 % Lymphocytes % (Manual) 14 % Monocytes % (Manual) 9 % Eosinophils % (Manual) 2 % Neutrophils # (Manual) 6.75 (1.3-7.7) k/uL Lymphocytes # (Manual) 1.26 (1.0-4.8) k/uL Monocytes # (Manual) 0.81 (0-1.0) k/uL Eosinophils # (Manual) 0.18 (0-0.7) k/uL Nucleated RBCs 0 (0-0) /100 WBC Manual Slide Review Performed Sodium 136 L (137-145) mmol/L Potassium 4.5 (3.5-5.1) mmol/L Chloride 102 (98-107) mmol/L Carbon Dioxide 27 (22-30) mmol/L Anion Gap 7 mmol/L BUN 36 H (9-20) mg/dL Creatinine 1.44 H (0.66-1.25) mg/dL Est GFR (CKD-EPI)AfAm 53 (>60 ml/min/1.73 sqM) Est GFR (CKD-EPI)NonAf 46 (>60 ml/min/1.73 sqM) Glucose 190 H (74-99) mg/dL Plasma Lactic Acid Cameron 1.4 (0.7-2.0) mmol/L Calcium 9.1 (8.4-10.2) mg/dL Total Bilirubin 0.8 (0.2-1.3) mg/dL AST 23 (17-59) U/L ALT 13 (4-49) U/L Alkaline Phosphatase 63 (38-126) U/L Total Protein 6.6 (6.3-8.2) g/dL Albumin 3.9 (3.5-5.0) g/dL Disposition <Milla Thomas - Last Filed: 03/18/24 10:22> Is patient prescribed a controlled substance at d/c from ED?: No Time of Disposition: 12:56 <Toño Fletcher - Last Filed: 03/18/24 13:06> Clinical Impression: Cellulitis, Renal insufficiency Disposition: HOME SELF-CARE Condition: Stable Instructions (If sedation given, give patient instructions): Cellulitis (ED), Impaired Kidney Function (ED) Additional Instructions: Prescription sent to pharmacy. Please do follow-up with your primary care physician within the next 2 days for recheck. Return for fevers, increased pain, swelling, redness streaking up the leg, worsening or changing symptoms or any other concerns. Please also have your primary care physician recheck your kidney function Prescriptions: Clindamycin [Cleocin] 2 tab PO Q6H #80 cap Referrals: [facility],Clinic [Primary Care Provider] - 1-2 days
--- NOTE | 2024-03-18 10:42 | XR ---
EXAMINATION TYPE: XR foot complete RT DATE OF EXAM: 03/18/2024 COMPARISON: None HISTORY: Pain and swelling TECHNIQUE: 3 view right foot FINDINGS: No acute fracture or dislocation is evident. Joint spaces are preserved. Soft tissues appea r unremarkable. Graeff follow up exams can be performed 7-10 days from acute trauma continued pain. IMPRESSION: 1. No acute osseous abnormality right foot
--- NOTE | 2024-03-18 11:39 | US ---
EXAMINATION TYPE: US venous doppler duplex LE RT DATE OF EXAM: 03/18/2024 11:28 AM COMPARISON: NONE CLINICAL INDICATION: Male, 78 years old with history of erythema, edema, pain; pain SIDE PERFORMED: Right TECHNIQUE: The lower extremity deep venous system is examined utilizing real time linear array sonog brittani with graded compression, doppler sonography and color-flow sonography. VESSELS IMAGED: Common Femoral Vein Deep Femoral Vein Greater Saphenous Vein * Femoral Vein Popliteal Vein Small Saphenous Vein * Proximal Calf Veins (* superficial vessels) Right Leg: Negative for DVT IMPRESSION: 1. Right lower extremity ultrasound negative for deep venous thrombosis.
[2024-03-18 11:52] LABS: ALT 13 U/L (4-49); AST 23 U/L (17-59); African American GFR (CKD) 53 (>60 ml/min/1.73 sqM); Albumin 3.9 g/dL (3.5-5.0); Alkaline Phosphatase 63 U/L (38-126); Anion Gap 7 mmol/L; Blood Urea Nitrogen 36 mg/dL (9-20); Calcium 9.1 mg/dL (8.4-10.2); Carbon Dioxide 27 mmol/L (22-30); Chloride 102 mmol/L (98-107); Glucose 190 mg/dL (74-99); Non-African American GFR(CKD) 46 (>60 ml/min/1.73 sqM); Potassium 4.5 mmol/L (3.5-5.1); Sodium 136 mmol/L (137-145); Total Bilirubin 0.8 mg/dL (0.2-1.3); Total Protein 6.6 g/dL (6.3-8.2)
[2024-03-18 11:54] LABS: HCT 38.4 % (39.0-53.0); HGB 13.3 gm/dL (13.0-17.5); MCH 31.2 pg (25.0-35.0); MCHC 34.5 g/dL (31.0-37.0); MCV 90.4 fL (80.0-100.0); Mean Platelet Volume 7.8; Platelet Count 234 k/uL (150-450); RBC 4.25 m/uL (4.30-5.90); RDW 12.7 % (11.5-15.5)
[2024-03-18 12:27] LABS: Eosinophils # (M) 0.18 k/uL (0-0.7); Lymphocytes # (M) 1.26 k/uL (1.0-4.8); Monocytes # (M) 0.81 k/uL (0-1.0); Neutrophils # (M) 6.75 k/uL (1.3-7.7); Neutrophils % (M) 75 %; Nucleated Red Blood Cells 0 /100 WBC (0-0); Total Cells Counted 100
[2024-03-18] MEDS: SODIUM CHLORIDE 0.9% 500 ML 500 ML IV STA (13:21)
[2024-03-18] MEDS: CLINDAMYCIN 900 MG in DEXTROSE 5% IN WATER 50 ML IVPB STA (13:35)
[2024-03-18 13:42] VITALS: RESP 16
[2024-03-18 14:52] VITALS: BP 142/81; PULSE 81; TEMP 98.1
== END 2024-03-18 14:50 | disposition home or self-care (01) ==
LOC: EC 10:01
DX: L03.115 Cellulitis of right lower limb (principal); N28.9 Disorder of kidney and ureter, unspecified
CPT/HCPCS: 36415; 80053; 83605; 85025; 73630; 93971; 99284; 96365; J0736